=== PATIENT | female | born 1970 | race Caucasian/White ===

== ENCOUNTER → 2024-10-21 11:02 | Outpatient (REF) | payer BC, SELFPAY | LOC: WDC 11:02 | PROVIDERS: ATTENDING PHYSICIAN Obstetrics & Gynecology | DX: Z12.31 Encounter for screening mammogram for malignant neoplasm of breast (principal) | CPT/HCPCS: 77063; 77067 ==

== ENCOUNTER → 2024-12-03 08:40 | Outpatient (REF) | payer BC, SELFPAY | LOC: HWRAD 08:40 | PROVIDERS: ATTENDING PHYSICIAN Otolaryngology | DX: H90.11 Conductive hearing loss, unilateral, right ear, with unrestricted hearing on the contralateral side (principal); H66.004 Acute suppurative otitis media without spontaneous rupture of ear drum, recurrent, right ear | CPT/HCPCS: 70480 ==